=== PATIENT | male | born 1965 | race Caucasian/White ===

== ENCOUNTER 2017-11-30 06:46 | Day surgery (SDC) | payer OTHER ==
[~2017-11-30 06:46] MED LIST: Lactated Ringers 1,000 ML IV SCH; Sodium Chloride 0.9% 10 ML Syringe FLUSH PRN
[2017-11-30] MEDS ORDERED: Glycopyrrolate 0.2 MG/ML 2 ML SDV IV ONE (07:48)
[2017-11-30] MEDS ORDERED: Atropine 0.4 MG/ML SDV IVPUSH ONE (07:48)
[2017-11-30] MEDS ORDERED: Propofol 200 MG/20 ML SDV IV ONE (07:48)
--- NOTE | 2017-11-30 08:24 | PCM.OPNOTE ---
- General Post-Op/Procedure Note Date of Surgery/Procedure: 11/30/17 Operative Procedure(s): c scope with bx Findings: 2 mm cecal polyp transverse colon polyp in area of previous polyp 3mm sig diverticulosis Pre Op Diagnosis: hx of colon polyp Post-Op Diagnosis: 2 mm cecal polyp. transverse colon polyp in area of previous polyp 3mm. sig diverticulosis Anesthesia Technique: MAC Primary Surgeon: Stephan De La Fuente Anesthesia Provider: Gi Cheney Pathology: 2 mm cecal polyp transverse colon polyp in area of previous polyp 3mm Complications: None Condition: Good Free Text/Narrative:: see dictation
[2017-11-30 09:32] VITALS: BP 122/86
--- NOTE | 2017-11-30 15:21 | OR ---
DATE OF OPERATION: 11/30/2017 SURGEON: Stephan De La Fuente MD PROCEDURE PERFORMED: Colonoscopy with cold forceps biopsy. PREOPERATIVE DIAGNOSES: Personal history of colon polyps as well as sigmoid diverticulosis. POSTOPERATIVE DIAGNOSIS: A 2 mm polyp, cecum; 3 mm polyp, transverse colon. INDICATIONS FOR PROCEDURE: Mr. Lew is an individual, who has undergone multiple colonoscopies in the past. He has had a recurrent polyp in the transverse colon and has basically been on 1-year followup to ensure that we have prevented return growth. He presents now for followup scope. DESCRIPTION OF OPERATION: After an excellent IV sedation was administered, digital rectal exam was performed. No marked abnormality was noted. Flexible colonoscope was inserted and advanced to the cecum without difficulty. The prep was good. We had to irrigate some areas, but got an excellent view of the mucosa. The following findings were noted. In the cecum, a small 2-mm lesion, biopsied with cold biopsy forceps. The transverse colon near the hepatic flexure in the tattooed area, where the previous adenoma had been encountered, there was one small area measuring approximately 3 mm and markedly smaller than the previous area. This was biopsied and obliterated and sent for permanent. The remainder of the transverse colon was unremarkable. Descending colon, unremarkable. Sigmoid, scattered diverticulosis. Rectum and anus, unremarkable. The scope was removed. The patient tolerated the procedure well, was taken to recovery room in good condition. /[id number] /MODL
== END 2017-11-30 09:05 | disposition home or self-care (01) ==
LOC: FB.SDS 06:46
PROVIDERS: ATTEND Surgery
DX: D12.0 Benign neoplasm of cecum (principal); D12.3 Benign neoplasm of transverse colon; K57.30 Diverticulosis of large intestine without perforation or abscess without bleeding; F17.290 Nicotine dependence, other tobacco product, uncomplicated; Z86.010 Personal history of colon polyps
CPT/HCPCS: 45380; 88305; J0461; J2704; J7120; J3490